=== PATIENT | female | born 1995 | race African-American/Black ===

== ENCOUNTER 2017-05-27 17:00 | Inpatient (IN) | END 2017-05-30 09:45 | disposition home or self-care (01) | DRG 778 ==

== ENCOUNTER 2017-06-03 15:40 | Inpatient (IN) | END 2017-06-05 14:09 | disposition home or self-care (01) | DRG 780 ==

== ENCOUNTER 2018-02-04 01:26 | Emergency (ER) | END 2018-02-04 04:00 | disposition home or self-care (01) ==

== ENCOUNTER 2018-09-20 19:42 | Emergency (ER) | payer OTHER ==
[~2018-09-20] VITALS: Ht 152.4 cm; Wt 58.6 kg
[~2018-09-20 19:42] MED LIST: ONDA4TAB14 PO; TRAM50TA2 PO
[2018-09-20 19:44] VITALS: Ht 152.4 cm; Wt 58.6 kg
--- NOTE | 2018-09-20 20:12 | ERD ---
ER Documentation Chief Complaint Chief Complaint RUQ PAIN, HX OF GALSTONES HPI 22-year-old female presents with complaint of right upper quadrant pain for the past several hours after eating a chili dog. States she is a history of g allstones and this is her third gallstone attack this month. She is currently awaiting surgery for removal of her gallbladder. Denies ever having had cholecystitis. States that she is taken to 600 mg ibuprofens. Most recent one was 1 hour ago. Denies any fevers, vomiting, diarrhea. ROS All systems reviewed and are negative except as per history of present illness. Medications Home Meds Active Scripts Hydrocodone/Acetaminophen ([place] 5-325 Tablet) 1 Each Tablet, 1 TAB PO Q6H PRN for PAIN, #7 TAB Prov:MERT ENRIQUE 09/20/18 Ibuprofen* (Motrin*) 600 Mg Tab, 600 MG PO Q6H PRN for PAIN AND OR ELEVATED TEMP, #30 TAB Prov:MERT ENRIQUE 09/20/18 Ondansetron (Ondansetron Odt) 4 Mg Tab.rapdis, 4 MG PO Q6H PRN for NAUSEA AND/OR VOMITING, #10 TAB Prov:MERT FUENTES 02/04/18 Tramadol HCl (Tramadol HCl) 50 Mg Tablet, 50 MG PO Q4 PRN for PAIN, #20 TAB Prov:MERT FUENTES. 02/04/18 Allergies Allergies: Coded Allergies: No Known Drug Allergies (Verified Allergy, Unknown, 09/20/18) PMhx/Soc History of Surgery: Yes Hx Miscellaneous Medical Probl: Yes (gallstones) Hx Alcohol Use: No Hx Substance Use: Yes (marijuana) Hx Tobacco Use: Yes Smoking Status: Current every day smoker FmHx Family History: No diabetes, No coronary disease, No other Physical Exam Vitals Vital Signs Date Temp Pulse Resp B/P (MAP) Pulse Ox O2 O2 Flow FiO2 Time Delivery Rate 09/20/18 98.3 80 18 109/59 98 19:44 (76) Physical Exam Const: No acute distress Head: Atraumatic Eyes: Normal Conjunctiva ENT: Normal External Ears, Nose and Mouth. Neck: Full range of motion. No meningismus. Resp: Clear to auscultation bilaterally Cardio: Regular rate and rhythm, no murmurs Abd: Tenderness palpation in the right upper quadrant area. No McBurney's tenderness. Skin: No petechiae or rashes Back: No midline or flank tenderness Ext: No cyanosis, or edema Neur: Awake and alert Psych: Normal Mood and Affect Result Diagram: 09/20/18200909/20/182009 Results 24 hrs Laboratory Tests Test 09/20/18 20:10 White Blood Count 9.5 10^3/ul Red Blood Count 3.72 10^6/ul Hemoglobin 11.6 g/dl Hematocrit 35.3 % Mean Corpuscular Volume 94.9 fl Mean Corpuscular Hemoglobin 31.2 pg Mean Corpuscular Hemoglobin Concent 32.9 g/dl Red Cell Distribution Width 12.9 % Platelet Count 337 10^3/UL Mean Platelet Volume 8.5 fl Immature Granulocytes % 0.300 % Neutrophils % 64.3 % Lymphocytes % 29.6 % Monocytes % 3.9 % Eosinophils % 1.6 % Basophils % 0.3 % Nucleated Red Blood Cells % 0.0 /100WBC Immature Granulocytes # 0.030 10^3/ul Neutrophils # 6.1 10^3/ul Lymphocytes # 2.8 10^3/ul Monocytes # 0.4 10^3/ul Eosinophils # 0.2 10^3/ul Basophils # 0.0 10^3/ul Nucleated Red Blood Cells # 0.0 10^3/ul Sodium Level 142 mmol/L Potassium Level 3.9 mmol/L Chloride Level 105 mmol/L Carbon Dioxide Level 30 mmol/L Anion Gap 7 Blood Urea Nitrogen 22 mg/dl Creatinine 0.80 mg/dl Est Glomerular Filtrat Rate mL/min > 60 mL/min Glucose Level 162 mg/dl Calcium Level 9.5 mg/dl Total Bilirubin 0.2 mg/dl Direct Bilirubin 0.00 mg/dl Indirect Bilirubin 0.2 mg/dl Aspartate Amino Transf (AST/SGOT) 41 IU/L Alanine Aminotransferase (ALT/SGPT) 39 IU/L Alkaline Phosphatase 135 IU/L Total Protein 7.8 g/dl Albumin 4.2 g/dl Globulin 3.60 g/dl Albumin/Globulin Ratio 1.16 Lipase 397 U/L Current Medications Medications Dose Sig/Emani Start Time Status Last (Trade) Ordered Route PRN Stop Time Admin Dose Reason Admin Oxycodone/ 1 tab ONCE ONCE 09/20/18 DC Acetaminophen PO 20:30 09/20/18 (Percocet 20:31 (5/ 325)) Procedures/MDM MDM: Patient's presentation was consistent with recurrence of biliary colic. Labs ordered as well as gallbladder ultrasound. Patient was given 1 Percocet in the ER but no ibuprofen as she just taken ibuprofen an hour before. Patient signed out to [facility] pending results of lab work and ultrasound. Findings consistent with cholecystitis. Please refer to [facility] notes for further details regarding this patient's visit. Departure Diagnosis: Primary Impression: Biliary colic Condition: Stable MERT ENRIQUE Sep 20, 2018 20:12 ESTEFANIA GORDILLO PA-C Sep 20, 2018 21:34
[2018-09-20] MEDS ORDERED: OXYCODONE/ACETAMINOPHEN (5/325) TAB PO ONE (20:30)
[2018-09-20] MEDS ORDERED: HYDR-4011 PO (20:43)
[2018-09-20] MEDS ORDERED: IBUP-1542 PO (20:43)
[2018-09-20 21:38] VITALS: BP 108/58; PULSE 95; RESP 18
== END 2018-09-20 21:33 | disposition home or self-care (01) ==
LOC: FTE 19:42
DX: K80.20 Calculus of gallbladder without cholecystitis without obstruction (principal); F17.210 Nicotine dependence, cigarettes, uncomplicated
CPT/HCPCS: 76705; 80053; 83690; 85025; Z7502

== ENCOUNTER 2018-10-01 22:14 | Emergency (ER) | payer OTHER ==
[~2018-10-01] VITALS: Ht 154.9 cm; Wt 50.0 kg
[~2018-10-01 22:14] MED LIST changes: +HYDR-4011 PO; +IBUP-1542 PO
--- NOTE | 2018-10-01 22:19 | ERD ---
ER Documentation Chief Complaint Chief Complaint Abdominal pain HPI The patient is a 23-year-old female, presenting to the ER because of recurrent abdominal pain about an hour ago after eating pork chop about 2 hours ago. She was seen in the ER 11 days ago for similar symptom, had an ultrasound that showed gallstones. He denies fever, chills, neck pain, chest pain, dyspnea, vomited couple times mostly mucus denies hematemesis/hematochezia, denies diarrhea, constipation dysuria. She does not smoke nor drink, smokes marijuana Past medical history: Cholelithiasis Past surgical history: None ROS All systems reviewed and are negative except as per history of present illness. Medications Home Meds Active Scripts Ibuprofen* (Motrin*) 600 Mg Tab, 600 MG PO Q6H PRN for PAIN AND OR ELEVATED TEMP, #20 TAB Prov:LEANNA OREILLY MD 10/01/18 Hydrocodone/Acetaminophen ([place] 5-325 Tablet) 1 Each Tablet, 1 TAB PO Q6H PRN for PAIN, #7 TAB Prov:MERT ENRIQUE 09/20/18 Ibuprofen* (Motrin*) 600 Mg Tab, 600 MG PO Q6H PRN for PAIN AND OR ELEVATED TEMP, #30 TAB Prov:MERT ENRIQUE 09/20/18 Ondansetron (Ondansetron Odt) 4 Mg Tab.rapdis, 4 MG PO Q6H PRN for NAUSEA AND/OR VOMITING, #10 TAB Prov:MERT FUENTES 02/04/18 Tramadol HCl (Tramadol HCl) 50 Mg Tablet, 50 MG PO Q4 PRN for PAIN, #20 TAB Prov:MERT FUENTES 02/04/18 Allergies Allergies: Coded Allergies: No Known Drug Allergies (Verified Allergy, Unknown, 09/20/18) PMhx/Soc History of Surgery: Yes Hx Miscellaneous Medical Probl: Yes (gallstones) Hx Alcohol Use: No Hx Substance Use: Yes (marijuana) Hx Tobacco Use: Yes Physical Exam Vitals Vital Signs Date Temp Pulse Resp B/P (MAP) Pulse Ox O2 O2 Flow FiO2 Time Delivery Rate 10/01/18 98.7 76 19 132/89 100 Room Air 22:31 (103) 10/01/18 98.7 88 19 132/89 100 22:28 (103) Physical Exam Const: No acute distress. Head: Atraumatic. Eyes: Normal Conjunctiva. ENT: Normal External Ears, Nose and Mouth. Neck: Full range of motion. No meningismus. Resp: Clear to auscultation bilaterally. Cardio: Regular rate and rhythm. Abd: Soft, non distended, normal bowel sounds, mild right upper quadra nt discomfort, no right lower quadrant/epigastric/rigidity/rebound or CVA tenderness Skin: No petechiae or rashes. Back: No midline or flank tenderness. Ext: No cyanosis, or edema. Neur: Awake and alert. No focal deficit Psych: Normal Mood and Affect. Result Diagram: 10/01/18223910/01/182239 Results 24 hrs Laboratory Tests Test 10/01/18 22:40 10/01/18 23:04 10/01/18 23:06 White Blood Count 14.6 10^3/ul Red Blood Count 3.56 10^6/ul Hemoglobin 11.3 g/dl Hematocrit 33.4 % Mean Corpuscular Volume 93.8 fl Mean Corpuscular Hemoglobin 31.7 pg Mean Corpuscular 33.8 g/dl Hemoglobin Concent Red Cell Distribution Width 13.3 % Platelet Count 309 10^3/UL Mean Platelet Volume 9.8 fl Immature Granulocytes % 0.300 % Neutrophils % 63.5 % Lymphocytes % 29.1 % Monocytes % 6.0 % Eosinophils % 0.8 % Basophils % 0.3 % Nucleated Red Blood Cells % 0.0 /100WBC Immature Granulocytes # 0.050 10^3/ul Neutrophils # 9.3 10^3/ul Lymphocytes # 4.2 10^3/ul Monocytes # 0.9 10^3/ul Eosinophils # 0.1 10^3/ul Basophils # 0.0 10^3/ul Nucleated Red Blood Cells # 0.0 10^3/ul Sodium Level 140 mmol/L Potassium Level 3.8 mmol/L Chloride Level 103 mmol/L Carbon Dioxide Level 28 mmol/L Anion Gap 9 Blood Urea Nitrogen 21 mg/dl Creatinine 0.79 mg/dl Est Glomerular Filtrat Rate mL/min > 60 mL/min Glucose Level 95 mg/dl Calcium Level 10.2 mg/dl Total Bilirubin 0.3 mg/dl Direct Bilirubin 0.00 mg/dl Indirect Bilirubin 0.3 mg/dl Aspartate Amino Transf (AST/SGOT) 65 IU/L Alanine 39 IU/L Aminotransferase (ALT/SGPT) Alkaline Phosphatase 142 IU/L Total Protein 8.0 g/dl Albumin 4.4 g/dl Globulin 3.60 g/dl Albumin/Globulin Ratio 1.22 Lipase 420 U/L Beta HCG, Quantitative < 2.4 mIU/ml Bedside Urine pH (LAB) 7.5 Bedside Urine Protein (LAB) Negative Bedside Urine Glucose (UA) Negative Bedside Urine Ketones (LAB) Negative Bedside Urine Blood Trace-intact Bedside Urine Nitrite (LAB) Negative Bedside Urine Leukocyte Esterase Negative (L POC Beta HCG, Qualitative NEGATIVE Current Medications Medications Dose Sig/Emani Start Time Status Last (Trade) Ordered Route PRN Stop Time Admin Dose Reason Admin Sodium 1,000 ml @ Q1H STAT 10/01/18 DC 10/01/18 Chloride 1,000 mls/hr IV 22:20 22:27 10/01/18 23:19 Ondansetron 4 mg ONCE STAT 10/01/18 DC 10/01/18 HCl (Zofran IV 22:20 22:26 Inj) 10/01/18 22:21 1 tab ONCE ONCE 10/01/18 DC 10/01/18 Acetaminophen PO 23:30 23:17 / 10/01/18 23:31 Hydrocodone Bitart ([place] (5/325)) Ketorolac 30 mg ONCE STAT 10/01/18 DC Tromethamine IV 23:58 (Toradol) 10/01/18 23:59 Procedures/MDM MEDICAL MAKING DECISION: The patient is a 23-year-old female, presenting with acute pericolic, was treated with 1 L normal saline, Zofran 4 mg IV for nausea, Toradol 30 mg IV and [place] 5 mg p.o. for pain with good response, is stable for outpatient follow-up The differential diagnoses considered include but are not limited to cholelithiasis, cholecystitis, choledocholithiasis, cholangitis, pancreatitis, hepatitis, gastritis, peptic ulcer disease, gastric ulcer, appendicitis, cystitis, diverticulitis, partial small bowel obstruction. Departure Diagnosis: Primary Impression: Biliary colic Additional Impression: Anemia Condition: Good Comments She was discharged with Motrin and advised to return in 8 hours for reevaluation, sooner if any concern The patient's blood pressure was elevated (>120/80) but appears stable without evidence of hypertension emergency or urgency. The patient was counseled about the risks of hypertension and urged to pursue outpatient monitoring and therapy within a week with their primary care physician. I discussed the findings with the patient. I advised the patient to follow-up with the primary physician in about 2-3 days, sooner if needed and return if any concern. Disclaimer: Inadvertent spelling and grammatical errors are likely due to EHR/dictation software use and do not reflect on the overall quality of patient care. Also, please note that the electronic time recorded on this note does not necessarily reflect the actual time of the patient encounter. LEANNA OREILLY MD Oct 01, 2018 22:19
[2018-10-01] MEDS ORDERED: SOD CHLORIDE 0.9% 1,000 ML IV STA (22:20)
[2018-10-01] MEDS ORDERED: ONDANSETRON 4 MG INJ IV STA (22:20)
[2018-10-01 22:28] VITALS: Ht 154.9 cm; Wt 50.0 kg
[2018-10-01] MEDS ORDERED: HYDROCODONE/APAP (5/325) TAB PO ONE (23:30)
[2018-10-01] MEDS ORDERED: IBUP-1542 PO (23:57)
[2018-10-01] MEDS ORDERED: KETOROLAC 30 MG INJ IV STA (23:58)
[2018-10-02 02:42] VITALS: BP 129/81; PULSE 78; RESP 16
== END 2018-10-02 02:56 | disposition home or self-care (01) ==
LOC: E/R 22:14
DX: K80.50 Calculus of bile duct without cholangitis or cholecystitis without obstruction (principal); Z87.891 Personal history of nicotine dependence
CPT/HCPCS: 80053; 81003; 81025; 83690; 84702; 85025; J2405; J7030; Z7610; 36415; 96374